=== PATIENT | male | born 1985 | race Caucasian/White ===

== ENCOUNTER 2019-05-31 14:28 | Emergency (ER) | payer OTHER ==
[2019-05-31] MEDS ORDERED: Adacel Vial IM ONE ×2 (14:50→14:55)
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
[2019-05-31 15:00] VITALS: BP 116/72; PULSE 104; O2SAT 99
== END 2019-05-31 15:28 | disposition home or self-care (01) ==
LOC: ED 14:28
DX: S61.217A Laceration without foreign body of left little finger without damage to nail, initial encounter (principal); W26.0XXA Contact with knife, initial encounter
CPT/HCPCS: 12001; 90715; 99283